=== PATIENT | female | born 1975 | race Two or more races ===

== ENCOUNTER 2020-06-19 04:52 | Observation (INO) | payer SELFPAY ==
[~2020-06-19] VITALS: Ht 165.1 cm; Wt 75.0 kg
--- NOTE | 2020-06-19 04:52 | NUR ---
INITIAL PT CONTACT. PT PRESENTS TO ED A TRANSFER FROM [facility] VIA EMS FOR RIGHT ABD PAIN, FLANK PAIN, UTI, HYDRONEPHROSIS AND POSSIBLE INFECTED KIDNEY STONE. PT TRANSFER FOR POSSIBLE IR OR UROLOGY. PIV PLACED AND PT GIVEN 4 MG MORPHINE, 4 MG ZOFRAN, 1 LITER LR AND 2GRAMS OF ROCEPHIN AT TRANSFERING FACILITY. PT TRASNFERED TO [facility], SITTING UPRIGHT, NAD, VSS. PT DENIES ANY NEEDS AT THIS TIME. CALL LIGHT AND PERSONAL BELONGINGS WITHIN REACH.
--- NOTE | 2020-06-19 05:50 | NUR ---
Pt to be admitted to OR. Report called to NATHANIEL.
[2020-06-19 05:55] LABS: BASOPHILS % (AUTO) 1 % (0-1); EOSINOPHILS % (AUTO) 0 % (1-7); LYMPHOCYTES % (AUTO) 11 % (22-44); MEAN CORPUSCULAR HEMOGLOBIN 32.6 pg (27.0-34.8); MEAN CORPUSCULAR HGB CONC 34.3 g/dL (32.4-35.8); MEAN PLATELET VOLUME 7.3 fL (7.4-10.4); MONOCYTES % (AUTO) 2 % (2-9); NEUTROPHILS % (AUTO) 86 % (42-75); PLATELET COUNT 262 x10^3/uL (130-400); RED BLOOD COUNT 4.34 x10^6/uL (3.82-5.3)
[2020-06-19 05:56] LABS: MD NO
[2020-06-19] MEDS ORDERED: MORPHINE SULFATE 4 MG/ML, 1ML IVPush PRN (06:00)
[2020-06-19] MEDS ORDERED: SODIUM CHLORIDE FLUSH 10ML SYR IVF PRN (06:00)
[2020-06-19] MEDS ORDERED: ONDANSETRON 2MG/ML, 2ML IVPush PRN ×2 (06:00→07:30)
[2020-06-19 06:03] LABS: ANION GAP 2 mmol/L (5-15); CHLORIDE 111 mmol/L (98-107); CREATININE 0.94 mg/dL (0.55-1.02)
[2020-06-19] MEDS ORDERED: FENTANYL PF 100 MCG/2ML ONE (06:35)
[2020-06-19] MEDS ORDERED: MIDAZOLAM 1 MG/ML, 2ML ONE (06:40)
[2020-06-19] MEDS ORDERED: CEFTRIAXONE 1,000 MG ONE (06:51)
[2020-06-19] MEDS ORDERED: VISIPAQUE 270 MG/ML, 50ML BOTTLE IV ONE (07:08)
[2020-06-19] MEDS ORDERED: PROPOFOL 10 MG/ML, 20ML ONE (07:17)
[2020-06-19] MEDS ORDERED: SUCCINYLCHOLINE 20 MG/ML, 10ML ONE (07:17)
[2020-06-19] MEDS ORDERED: ROCURONIUM 10MG/ML,5ML ONE (07:17)
[2020-06-19] MEDS ORDERED: CEFAZOLIN 1,000 MG ONE (07:17)
[2020-06-19] MEDS ORDERED: DEXAMETHASONE 4 MG/ML, 1ML ONE (07:17)
[2020-06-19] MEDS ORDERED: GLYCOPYRROLATE 0.2MG/1ML, 5ML ONE (07:17)
[2020-06-19] MEDS ORDERED: NEOSTIGMINE 1 MG/ML, 10ML ONE (07:17)
[2020-06-19] MEDS ORDERED: ONDANSETRON 2MG/ML, 2ML ONE (07:17)
[2020-06-19] MEDS ORDERED: ACETAMINOPHEN 325 MG TABLET PO PRN ×2 (07:30)
[2020-06-19] MEDS ORDERED: IBUPROFEN 600 MG TABLET PO PRN (07:30)
[2020-06-19] MEDS ORDERED: KETOROLAC 30 MG/1 ML IV PRN (07:30)
[2020-06-19] MEDS ORDERED: PROMETHAZINE 25 MG/ML, 1ML IV PRN (07:30)
[2020-06-19] MEDS ORDERED: FENTANYL PF 100 MCG/2ML IV PRN (07:30)
[2020-06-19] MEDS ORDERED: ALBUTEROL SULFATE 2.5 MG/3 ML NPPB PRN (07:30)
[2020-06-19] MEDS ORDERED: OXYcodone 5 MG/5 ML ORAL.SOL UDC PO PRN (07:30)
[2020-06-19] MEDS ORDERED: ONDANSETRON ODT 4 MG PO PRN (07:30)
[2020-06-19] MEDS ORDERED: DIAZEPAM 5 MG/ML, 2ML IVPush PRN (07:30)
[2020-06-19] MEDS ORDERED: LABETALOL 5MG/ML, 20ML IV PRN (07:30)
[2020-06-19] MEDS ORDERED: HYDROmorphone 2 MG/ML, 1ML IVPush PRN (07:30)
[2020-06-19] MEDS ORDERED: SODIUM CHLORIDE 0.9% 1,000 ML IV SCH (07:30)
[2020-06-19] MEDS ORDERED: hydrALAzine 20 MG/ML, 1ML IV PRN (07:30)
[2020-06-19] MEDS ORDERED: MEPERIDINE/PF 25MG/0.5ML IVPush PRN (07:30)
[2020-06-19 08:05] VITALS: BP 114/76
[2020-06-19] MEDS ORDERED: CEFTRIAXONE PMX 2GM/50ML 50 ML IVPB SCH (09:00)
[2020-06-19 12:40] VITALS: BP 114/76
[2020-06-19 12:41] VITALS: BP 114/76
[2020-06-19] MEDS ORDERED: CEFD300C37 PO ×3 (16:34→16:50)
== END 2020-06-19 17:40 | disposition home or self-care (01) ==
LOC: ED 05:15 → INTOOBSV 05:37 → EDIP 05:37 → 4NE 08:00
PROVIDERS: ADMIT Internal Medicine; ATTEND Internal Medicine
DX: N13.2 Hydronephrosis with renal and ureteral calculous obstruction (principal); N23 Unspecified renal colic; N21.0 Calculus in bladder; N30.80 Other cystitis without hematuria; D72.829 Elevated white blood cell count, unspecified; R73.9 Hyperglycemia, unspecified; E74.39 Other disorders of intestinal carbohydrate absorption; Z79.899 Other long term (current) drug therapy
CPT/HCPCS: 36415; 52320; 80048; 82360; 83036; 83605; 85025; 88300; 96365; 99284; C1769; C2617; G0378; J0330; J0690; J0696; J1100; J2250; J2405; J2704; J2710; J3010; J7030; Q9966